=== PATIENT | female | born 1985 | race Caucasian/White ===

== ENCOUNTER → 2017-11-20 | Outpatient (CLI) | payer OTHER ==
[~2017-11-20] MED LIST: CYCL10 PO; Cleocin HCl300 MG PO; DICL25ER PO; Keflex500 MG PO; METPRE4DP PO; Naprosyn375 MG PO; Naprosyn500 MG PO; PRODEXEL PO; PYRI100 PO; Robaxin500 MG PO; Sudogest60 MG PO; Tri-Sprintec1 EACH PO; UNISOM25 MG PO; Ultram50 MG PO; Valium5 MG PO; Verotin-Gr Cap1 EACH PO; Zithromax250 MG PO; Zofran Odt8 MG SL
[2017-11-21 12:29] LABS: Source Cervix
== END ==
LOC: LAB 14:14
PROVIDERS: Registered Nurse Community Health
DX: Z12.4 Encounter for screening for malignant neoplasm of cervix (principal)
CPT/HCPCS: G0123

== ENCOUNTER 2018-01-11 11:44 | Emergency (ER) | payer OTHER ==
[~2018-01-11 11:44] MED LIST changes: -PYRI100 PO; -UNISOM25 MG PO; -Verotin-Gr Cap1 EACH PO
== END 2018-01-11 12:29 | disposition left against medical advice (07) ==
LOC: ER 11:44
DX: Z53.21 Procedure and treatment not carried out due to patient leaving prior to being seen by health care provider (principal)

== ENCOUNTER 2018-03-20 19:41 | Emergency (ER) | payer OTHER ==
[~2018-03-20] VITALS: Ht 170.2 cm; Wt 72.6 kg
[2018-03-20 20:23] LABS: BASOPHILS ABSOLUTE AUTO 0.03 K/mm3 (0.00-0.23); BASOPHILS PERCENT AUTO 0 % (0-2); EOSINOPHILS ABSOLUTE AUTO 0.07 K/mm3 (0.00-0.68); EOSINOPHILS PERCENT AUTO 1 % (0-6); Hematocrit 36.2 % (33.0-51.0); Hemoglobin 12.1 g/dL (11.5-16.0); IMMATURE GRAN ABSOLUTE AUTO 0.03 K/mm3 (0.00-0.10); IMMATURE GRAN PERCENT AUTO 0 % (0-1); LYMPHOCYTES ABSOLUTE AUTO 3.12 K/mm3 (0.84-5.20); LYMPHOCYTES PERCENT AUTO 37 % (21-46); MONOCYTES ABSOLUTE AUTO 0.71 K/mm3 (0.16-1.47); MONOCYTES PERCENT AUTO 8 % (4-13); Mean Corpuscular HGB 27.9 pg (26.0-34.0); Mean Corpuscular HGB Conc 33.4 g/dL (31.5-36.5); Mean Corpuscular Volume 83 fL (80-100); Mean Platelet Volume 9.4 fL (9.1-12.4); NEUTROPHILS ABSOLUTE AUTO 4.56 K/mm3 (1.96-9.15); NEUTROPHILS PERCENT AUTO 54 % (41-73); Platelet Count 193 K/mm3 (150-400); RDW Coefficient Variation 13.6 % (11.7-14.2); Red Blood Cell Count 4.34 M/mm3 (3.80-5.20); White Blood Cell Count 8.52 K/mm3 (4.00-11.30)
[2018-03-20 20:53] LABS: Alanine Aminotransfer (ALT/SGP 23 U/L (12-78); Alk Phos 52 U/L (50-136); Anion Gap 9 mmol/L (6-16); Aspartate Aminotrans (AST/SGOT 11 U/L (12-37); Bilirubin, Total 0.5 mg/dL (0.1-1.0); Blood Urea Nitrogen 11 mg/dL (8-24); Bun/Creatinine Ratio 17.1 (12.0-20.0); CO2, Blood 25 mmol/L (21-32); Calcium, Blood 9.1 mg/dL (8.5-10.1); Chloride, Blood 105 mmol/L (98-108); Creatinine, Blood 0.65 mg/dL (0.40-1.00); Globulin, Blood 3.9 g/dL (2.2-4.0); Glomerular Filtration Rate >60 (60-); Glucose, Blood 93 mg/dL (70-99); Potassium, Blood 3.2 mmol/L (3.5-5.5); Sodium, Blood 139 mmol/L (136-145); Total Protein, Blood 7.9 g/dL (6.4-8.2)
[2018-03-20 21:32] LABS: Beta HCG, Quantitative, Serum 49962 mIU/mL (0-3)
[2018-03-20] MEDS ORDERED: PYRI100 PO (23:28)
[2018-03-20] MEDS ORDERED: UNISOM25 MG PO (23:28)
[2018-03-20 23:32] LABS: Source, Urine Clean Catch
[2018-03-20 23:35] LABS: Bilirubin, Urine Neg (Neg); Blood, Urine Neg (Neg); Glucose Qualitative, Urine Neg (Neg); Leukocyte Esterase, Urine 2+ (Neg); Nitrite, Urine Neg (Neg); Urobilinogen, Urine 1+ (Normal); pH, Urine 6.5 (5.0-8.0)
[2018-03-20 23:58] LABS: Ketones, Urine 1+ (Neg); Protein, Urine 2+ (Neg)
[2018-03-20 23:59] LABS: Color, Urine Amber (P-Yellow)
[2018-03-21] LABS: Amorphous Light (0-Heavy); Appearance, Urine Hazy (Clear); Bacteria Mod /hpf; Mucus Heavy (0-Heavy); Red Blood Cells, Urine Not Seen /hpf (0-2); Squamous Epithelial Cells Mod /hpf (Few); White Blood Cells, Urine 50-100 /hpf (0-5)
[2018-03-21] MEDS ORDERED: Keflex500 MG PO (00:08)
== END 2018-03-21 00:14 | disposition home or self-care (01) ==
LOC: ER 19:41
PROVIDERS: Emergency Medicine
DX: O23.41 Unspecified infection of urinary tract in pregnancy, first trimester (principal); O21.9 Vomiting of pregnancy, unspecified; Z88.0 Allergy status to penicillin; Z88.2 Allergy status to sulfonamides; Z88.1 Allergy status to other antibiotic agents; Z3A.01 Less than 8 weeks gestation of pregnancy
CPT/HCPCS: 80053; 81001; 84702; 85025; 99283

== ENCOUNTER → 2018-05-04 | Outpatient (CLI) | payer OTHER ==
[~2018-05-04] MED LIST changes: +PYRI100 PO; +UNISOM25 MG PO
[2018-05-06 23:13] LABS: CHLAMYDIA TRACHOMATIS, NAA Negative (Negative); NEISSERIA GONORRHOEAE, NAA Negative (Negative)
== END ==
LOC: LAB SHORT 12:14 → LAB 12:14
PROVIDERS: Registered Nurse Community Health
DX: Z36.89 Encounter for other specified antenatal screening (principal)
CPT/HCPCS: 87491; 87591

== ENCOUNTER 2018-06-14 12:57 | Emergency (ER) | payer OTHER ==
[~2018-06-14] VITALS: Ht 170.2 cm; Wt 74.8 kg
[2018-06-14] MEDS ORDERED: Verotin-Gr Cap1 EACH PO (13:07)
[2018-06-14] MEDS ORDERED: Keflex500 MG PO (13:35)
== END 2018-06-14 13:42 | disposition home or self-care (01) ==
LOC: ER 12:57
DX: J02.0 Streptococcal pharyngitis (principal)
CPT/HCPCS: 87430; 99282

== ENCOUNTER → 2018-10-14 | Outpatient (CLI) | payer OTHER ==
[~2018-10-14] MED LIST changes: +IBUP800 PO; +IRON150C PO; +Verotin-Gr Cap1 EACH PO
== END ==
LOC: LAB SHORT 13:54 → LAB 13:54
DX: Z34.93 Encounter for supervision of normal pregnancy, unspecified, third trimester (principal)
CPT/HCPCS: 87081; 87653

== ENCOUNTER 2018-11-03 04:40 | Inpatient (IN) | payer OTHER ==
[~2018-11-03] VITALS: Ht 170.2 cm; Wt 0.1 kg
[~2018-11-03 04:40] MED LIST changes: -IBUP800 PO; -IRON150C PO
[2018-11-03] MEDS ORDERED: IRON150C PO (05:05)
[2018-11-03 05:14] LABS: BASOPHILS ABSOLUTE AUTO 0.03 K/mm3 (0.00-0.23); BASOPHILS PERCENT AUTO 0 % (0-2); EOSINOPHILS ABSOLUTE AUTO 0.19 K/mm3 (0.00-0.68); EOSINOPHILS PERCENT AUTO 2 % (0-6); Hemoglobin 11.2 g/dL (11.5-16.0); IMMATURE GRAN ABSOLUTE AUTO 0.04 K/mm3 (0.00-0.10); IMMATURE GRAN PERCENT AUTO 0 % (0-1); LYMPHOCYTES ABSOLUTE AUTO 2.78 K/mm3 (0.84-5.20); LYMPHOCYTES PERCENT AUTO 29 % (21-46); MONOCYTES ABSOLUTE AUTO 0.76 K/mm3 (0.16-1.47); MONOCYTES PERCENT AUTO 8 % (4-13); Mean Corpuscular HGB 26.2 pg (26.0-34.0); Mean Corpuscular HGB Conc 31.1 g/dL (31.5-36.5); Mean Corpuscular Volume 84 fL (80-100); Mean Platelet Volume 9.6 fL (9.1-12.4); NEUTROPHILS ABSOLUTE AUTO 5.84 K/mm3 (1.96-9.15); NEUTROPHILS PERCENT AUTO 61 % (41-73); Platelet Count 226 K/mm3 (150-400); RDW Coefficient Variation 15.8 % (11.7-14.2); RDW Standard Deviation 47.7 fL (35.1-46.3); Red Blood Cell Count 4.27 M/mm3 (3.80-5.20); White Blood Cell Count 9.64 K/mm3 (4.00-11.30)
--- NOTE | 2018-11-03 12:20 | NUR ---
ASSUMED CARE FOR RN BENEDICT
--- NOTE | 2018-11-03 12:50 | NUR ---
FOREST SPANN RN REASSUMED CARE
--- NOTE | 2018-11-03 17:03 | NUR ---
amilcar Leos here informed of pts pain and asking for more percocet. seth Leos wants to keep orders the same and may have heating pad
[2018-11-04 05:26] LABS: BASOPHILS ABSOLUTE AUTO 0.05 K/mm3 (0.00-0.23); BASOPHILS PERCENT AUTO 0 % (0-2); EOSINOPHILS ABSOLUTE AUTO 0.39 K/mm3 (0.00-0.68); EOSINOPHILS PERCENT AUTO 3 % (0-6); Hematocrit 28.5 % (33.0-51.0); Hemoglobin 8.8 g/dL (11.5-16.0); IMMATURE GRAN ABSOLUTE AUTO 0.07 K/mm3 (0.00-0.10); IMMATURE GRAN PERCENT AUTO 1 % (0-1); LYMPHOCYTES ABSOLUTE AUTO 3.52 K/mm3 (0.84-5.20); LYMPHOCYTES PERCENT AUTO 28 % (21-46); MONOCYTES ABSOLUTE AUTO 0.94 K/mm3 (0.16-1.47); MONOCYTES PERCENT AUTO 7 % (4-13); Mean Corpuscular HGB 26.7 pg (26.0-34.0); Mean Corpuscular HGB Conc 30.9 g/dL (31.5-36.5); Mean Corpuscular Volume 87 fL (80-100); NEUTROPHILS ABSOLUTE AUTO 7.65 K/mm3 (1.96-9.15); NEUTROPHILS PERCENT AUTO 61 % (41-73); Platelet Count 195 K/mm3 (150-400); RDW Standard Deviation 49.3 fL (35.1-46.3); Red Blood Cell Count 3.29 M/mm3 (3.80-5.20); White Blood Cell Count 12.62 K/mm3 (4.00-11.30)
[2018-11-04] MEDS ORDERED: IBUP800 PO (13:42)
== END 2018-11-04 13:45 | disposition home or self-care (01) | DRG 807 ==
LOC: BC 04:40 → OBS 04:40 → BC 04:55
PROVIDERS: ADMIT Registered Nurse Community Health
PROC: 10E0XZZ Delivery of Products of Conception, External Approach (ICD-10-PCS; principal; 2018-11-03)
PROC: 10907ZC Drainage of Amniotic Fluid, Therapeutic from Products of Conception, Via Natural or Artificial Opening (ICD-10-PCS; 2018-11-03)
DX: O80 Encounter for full-term uncomplicated delivery (principal); Z37.0 Single live birth; Z3A.39 39 weeks gestation of pregnancy; Z88.0 Allergy status to penicillin; Z88.2 Allergy status to sulfonamides; Z88.8 Allergy status to other drugs, medicaments and biological substances
CPT/HCPCS: 36415; 51702; 85025; 94660; 94762; J1885; J2210; J2590; J7120

== ENCOUNTER 2019-01-08 10:20 | Day surgery (SDC) | payer OTHER ==
[~2019-01-08] VITALS: Ht 170.2 cm; Wt 71.1 kg
[~2019-01-08 10:20] MED LIST changes: +IBUP800 PO; +IRON150C PO
[2019-01-08] MEDS ORDERED: Esgic Tablet1 EACH PO (10:47)
--- NOTE | 2019-01-08 11:42 | NUR ---
01/08/19 1142 Suzette Vanessa DRLY AWARE PT HX OF ALLERGY TO PCN. PT STATES PCN CAUSES RASH. OK TO PROCEED WITH ANCEF PER DR. MCGHEE.
--- NOTE | 2019-01-08 12:59 | NUR ---
01/08/19 1259 Sabrina Stroud O2 DC'D AT 1255, O2 SATS REMAIN AT 99% ON RA
== END 2019-01-08 13:54 | disposition home or self-care (01) ==
LOC: ORSCSDS 10:20
PROVIDERS: Obstetrics & Gynecology
PROC: 0UT74ZZ Resection of Bilateral Fallopian Tubes, Percutaneous Endoscopic Approach (ICD-10-PCS; principal; 2019-01-08 11:30)
DX: Z30.2 Encounter for sterilization (principal); N80.3 Endometriosis of pelvic peritoneum
CPT/HCPCS: 88302; J0330; J0690; J1100; J1885; J2250; J2405; J2704; J3010; J7120

== ENCOUNTER 2020-02-07 12:07 | Emergency (ER) | payer OTHER ==
[~2020-02-07] VITALS: Ht 170.2 cm; Wt 62.1 kg
[~2020-02-07 12:07] MED LIST changes: +Esgic Tablet1 EACH PO
[2020-02-07] MEDS ORDERED: TOPI100 PO (12:43)
== END 2020-02-07 13:54 | disposition left against medical advice (07) ==
LOC: ER 12:07
DX: Z53.21 Procedure and treatment not carried out due to patient leaving prior to being seen by health care provider (principal)
CPT/HCPCS: 73130

== ENCOUNTER 2020-03-02 09:53 | Day surgery (SDC) | payer OTHER ==
[~2020-03-02] VITALS: Ht 167.6 cm; Wt 65.3 kg
[~2020-03-02 09:53] MED LIST changes: -Esgic Tablet1 EACH PO; +FIORINAL 50-321 EACH PO; +TOPI100 PO; +ZYRTEC10 M2 PO
[2020-03-02] MEDS ORDERED: TRAM50 PO (10:07)
--- NOTE | 2020-03-02 10:40 | NUR ---
History, Chart, Medications and Allergies reviewed before start of procedure.Patient confirms NPO status and agrees with scheduled surgery. Patient reports completing Chlorhexadine shower X2 prior to admission to hospital.Surgical site prepped with 2% Chlorhexidine cloth wipe.
--- NOTE | 2020-03-02 15:43 | NUR ---
ARRIVED TO ROOM VIA GURNEY, DENIES ANY NEED FOR PAIN MEDS AT THIS TIME, DENIES ANY NAUSEA, CLEAR LIQUIDS GIVEN, ABD INCISIONS C/D/I, SCANT SS DRAINAGE ON PERIPAD, REPORTS HAVING SOME DISCOMFORT IN "CATHETER AREA," REQUESTING TO HAVE FOSTER REMOVED, WILL DC FOSTER ORDERED.
--- NOTE | 2020-03-03 03:17 | NUR ---
POD 1 S/P LAVH. PT VSS T/O NIGHT. DRESSINGS CDI. PT HAVING SCANT VAGINAL BLEEDING. PAIN MGD W/10MG OXYCODONE AND TORADOL W/REP RELIEF. PT WILLAM PO, NO N/V, REP NO FLATUS YET. PLAN TO D/C FOSTER CATH THIS AM. PT USING CALL LIGHT FOR ASSISTANCE, REPORT GIVEN TO ROBINSON OROURKE.
[2020-03-03 03:41] LABS: BASOPHILS ABSOLUTE AUTO 0.02 K/mm3 (0.00-0.23); BASOPHILS PERCENT AUTO 0 % (0-2); EOSINOPHILS PERCENT AUTO 0 % (0-6); Hemoglobin 9.4 g/dL (11.5-16.0); IMMATURE GRAN ABSOLUTE AUTO 0.02 K/mm3 (0.00-0.10); IMMATURE GRAN PERCENT AUTO 0 % (0-1); LYMPHOCYTES ABSOLUTE AUTO 2.07 K/mm3 (0.84-5.20); LYMPHOCYTES PERCENT AUTO 24 % (21-46); MONOCYTES ABSOLUTE AUTO 0.63 K/mm3 (0.16-1.47); MONOCYTES PERCENT AUTO 7 % (4-13); Mean Corpuscular HGB 23.7 pg (26.0-34.0); Mean Corpuscular HGB Conc 31.3 g/dL (31.5-36.5); Mean Corpuscular Volume 76 fL (80-100); Mean Platelet Volume 10.3 fL (9.1-12.4); NEUTROPHILS ABSOLUTE AUTO 6.04 K/mm3 (1.96-9.15); NEUTROPHILS PERCENT AUTO 69 % (41-73); Platelet Count 239 K/mm3 (150-400); RDW Standard Deviation 46.5 fL (35.1-46.3); Red Blood Cell Count 3.97 M/mm3 (3.80-5.20); White Blood Cell Count 8.78 K/mm3 (4.00-11.30)
--- NOTE | 2020-03-03 07:41 | NUR ---
SUMMARY ASSUMED CARE OF PT THIS AM. FOSTER IS OUT. NO VOID YET.
[2020-03-03] MEDS ORDERED: Percocet 5-3251 EACH PO (12:18)
[2020-03-03] MEDS ORDERED: DOCU100 PO (12:18)
[2020-03-03] MEDS ORDERED: Milk Of Ma400 MG/5 M PO (12:19)
[2020-03-03] MEDS ORDERED: PROM25 PO (12:21)
[2020-03-03] MEDS ORDERED: SENN187 PO (12:22)
[2020-03-03] MEDS ORDERED: SIME80CH PO (12:22)
[2020-03-03] MEDS ORDERED: IBUP800 PO (12:29)
== END 2020-03-03 12:57 | disposition home or self-care (01) ==
LOC: ORSCMMR 09:53 → ORD 11:15 → ORSCMMR 11:15 → SURS 15:33 → ORSCMMR 03-03 12:57
PROVIDERS: Obstetrics & Gynecology
PROC: 0UT94ZZ Resection of Uterus, Percutaneous Endoscopic Approach (ICD-10-PCS; principal; 2020-03-02 11:15)
PROC: 8E0W4CZ Robotic Assisted Procedure of Trunk Region, Percutaneous Endoscopic Approach (ICD-10-PCS; principal; 2020-03-02 11:15)
PROC: 0U5F4ZZ Destruction of Cul-de-sac, Percutaneous Endoscopic Approach (ICD-10-PCS; principal; 2020-03-02 11:15)
PROC: 0UT04ZZ Resection of Right Ovary, Percutaneous Endoscopic Approach (ICD-10-PCS; principal; 2020-03-02 11:15)
DX: D50.0 Iron deficiency anemia secondary to blood loss (chronic) (principal); N80.9 Endometriosis, unspecified; N92.1 Excessive and frequent menstruation with irregular cycle; N94.6 Dysmenorrhea, unspecified; N94.10 Unspecified dyspareunia; R10.2 Pelvic and perineal pain; D25.2 Subserosal leiomyoma of uterus; Z79.899 Other long term (current) drug therapy
CPT/HCPCS: 58571; 58662; S2900; 36415; 85025; 86850; 86900; 86901; 88307; J0690; J1100; J1885; J2250; J2270; J2405; J2550; J2704; J3010; J7120